=== PATIENT | male | born 1990 | race Caucasian/White ===

== ENCOUNTER 2018-04-22 19:10 | Emergency (ER) | payer SELFPAY ==
[~2018-04-22] VITALS: Ht 190.5 cm; Wt 146.0 kg
[~2018-04-22 19:10] MED LIST: NAPROSYN500 MG PO; ULTRAM50 M1 PO
[2018-04-22 20:26] LABS: HEMATOCRIT 40.8 % (39.0-50.0); HEMOGLOBIN 13.6 g/dl (14.0-18.0); IMMATURE GRANULOCYTES 0.2 % (0.0-5.0); MEAN CELL VOLUME 86.1 fL CALC (80.0-100.0); MEAN CORPUSCULAR HGB 28.7 pG CALC (26.0-32.0); MEAN CORPUSCULAR HGB CONC 33.3 g/L CALC (32.0-36.0); NEUT# 5.41 thou/uL (1.82-7.42); RED BLOOD COUNT 4.74 mill/uL (4.70-6.10)
[2018-04-22 20:32] LABS: ANION GAP 15 (6-22 (CALC)); BUN 12 mg/dL (9-20); BUN/CREATININE RATIO 15 (12-20 (CALC)); CARBON DIOXIDE 27 mmol/l (22-30); CHLORIDE 104 mmol/l (95-108); CREATININE 0.8 mg/dL (0.7-1.3); GFR > 60 ML/MIN (>=60 (CALC)); GFR FOR AFR.AMER. > 60 ML/MIN (>=60 (CALC)); POTASSIUM 4.1 mmol/l (3.5-5.1); SODIUM 142 mmol/l (137-146)
[2018-04-22 21:45] VITALS: BP 106/52
[2018-04-22] MEDS ORDERED: LORTAB 5/3255 MG PO (22:16)
== END 2018-04-22 22:33 | disposition home or self-care (01) | DRG 563 ==
LOC: ED 19:10
PROVIDERS: Family Medicine
PROC: 0RSKXZZ Reposition Left Shoulder Joint, External Approach (ICD-10-PCS; principal; 2018-04-22)
DX: S43.035A Inferior dislocation of left humerus, initial encounter (principal); W01.0XXA Fall on same level from slipping, tripping and stumbling without subsequent striking against object, initial encounter; Y93.89 Activity, other specified

== ENCOUNTER 2020-09-06 16:03 | Emergency (ER) | payer SELFPAY ==
[~2020-09-06 16:03] MED LIST changes: +LORTAB 5/3255 MG PO
== END 2020-09-06 17:06 | disposition left against medical advice (07) | DRG 951 ==
LOC: ED 16:03 → LWOBS 17:05
DX: Z53.21 Procedure and treatment not carried out due to patient leaving prior to being seen by health care provider (principal)

== ENCOUNTER 2020-12-27 | Emergency (ER) | payer SELFPAY ==
[2020-12-27] MEDS ORDERED: LORTAB 5/3255 MG PO (19:52)
[2020-12-27] MEDS ORDERED: VOLTAREN75 MG PO (19:52)
== END 2020-12-27 22:58 | disposition home or self-care (01) | DRG 563 ==
DX: S43.005A Unspecified dislocation of left shoulder joint, initial encounter (principal); F17.200 Nicotine dependence, unspecified, uncomplicated; W01.0XXA Fall on same level from slipping, tripping and stumbling without subsequent striking against object, initial encounter; Y92.009 Unspecified place in unspecified non-institutional (private) residence as the place of occurrence of the external cause

== ENCOUNTER 2021-07-13 10:26 | Emergency (ER) | payer SELFPAY ==
[~2021-07-13] VITALS: Ht 190.5 cm; Wt 140.0 kg
[~2021-07-13 10:26] MED LIST changes: +VOLTAREN75 MG PO
[2021-07-13] MEDS ORDERED: NAPROXEN500 MG PO (14:31)
[2021-07-13 17:25] VITALS: BP 108/70
== END 2021-07-13 17:31 | disposition home or self-care (01) | DRG 563 ==
LOC: ED 10:26
PROC: 0RSKXZZ Reposition Left Shoulder Joint, External Approach (ICD-10-PCS; principal; 2021-07-13)
PROC: 05HB33Z Insertion of Infusion Device into Right Basilic Vein, Percutaneous Approach (ICD-10-PCS; 2021-07-13)
DX: M24.412 Recurrent dislocation, left shoulder (principal); F17.200 Nicotine dependence, unspecified, uncomplicated